=== PATIENT | male | born 1970 | race Caucasian/White ===

== ENCOUNTER 2021-10-30 06:37 | Outpatient (CLI) | payer BC, SELFPAY | END 2021-10-30 06:38 | disposition home or self-care (01) | PROVIDERS: PCP Family Medicine; Visit Provider Family Medicine | DX: M48.062 Spinal stenosis, lumbar region with neurogenic claudication (principal); M54.16 Radiculopathy, lumbar region | CPT/HCPCS: 62323; J0702; Q9966 ==

== ENCOUNTER 2022-11-25 12:52 | Outpatient (CLI) | payer BC, SELFPAY | END 2022-11-25 12:53 | disposition home or self-care (01) | LOC: WOUND 12:53 | PROVIDERS: PCP Family Medicine; Visit Provider Nurse Practitioner Family | DX: T81.32XA Disruption of internal operation (surgical) wound, not elsewhere classified, initial encounter (principal); T81.31XA Disruption of external operation (surgical) wound, not elsewhere classified, initial encounter; Z71.6 Tobacco abuse counseling | CPT/HCPCS: 11042; 87070; 87186; 97597; 99212 ==

== ENCOUNTER 2022-11-27 15:23 | Outpatient (CLI) | payer BC, SELFPAY | END 2022-11-27 15:24 | disposition home or self-care (01) | PROVIDERS: PCP Family Medicine; Visit Provider Surgery | DX: T81.32XA Disruption of internal operation (surgical) wound, not elsewhere classified, initial encounter (principal) | CPT/HCPCS: 99212 ==

== ENCOUNTER 2022-11-29 15:23 | Outpatient (CLI) | payer BC, SELFPAY | END 2022-11-29 15:24 | disposition home or self-care (01) | LOC: WOUND 15:23 | PROVIDERS: PCP Family Medicine; Visit Provider Nurse Practitioner Family | DX: T81.32XA Disruption of internal operation (surgical) wound, not elsewhere classified, initial encounter (principal) | CPT/HCPCS: 99212 ==

== ENCOUNTER 2022-12-02 15:38 | Outpatient (CLI) | payer BC, SELFPAY | END 2022-12-02 15:39 | disposition home or self-care (01) | LOC: WOUND 15:39 | PROVIDERS: PCP Family Medicine; Visit Provider Nurse Practitioner Family | DX: T81.32XA Disruption of internal operation (surgical) wound, not elsewhere classified, initial encounter (principal) | CPT/HCPCS: 99213 ==

== ENCOUNTER 2022-12-05 08:34 | Outpatient (CLI) | payer BC, SELFPAY | END 2022-12-05 08:35 | disposition home or self-care (01) | PROVIDERS: PCP Family Medicine; Visit Provider Nurse Practitioner Family | DX: T81.31XA Disruption of external operation (surgical) wound, not elsewhere classified, initial encounter (principal); Z72.0 Tobacco use | CPT/HCPCS: 97597 ==

== ENCOUNTER 2022-12-09 15:03 | Outpatient (CLI) | payer BC, SELFPAY | END 2022-12-09 15:04 | disposition home or self-care (01) | LOC: WOUND 15:03 | PROVIDERS: PCP Family Medicine; Visit Provider Nurse Practitioner Family | DX: T81.31XA Disruption of external operation (surgical) wound, not elsewhere classified, initial encounter (principal) | CPT/HCPCS: 99213 ==

== ENCOUNTER 2022-12-12 12:49 | Outpatient (CLI) | payer BC, SELFPAY | END 2022-12-12 12:50 | disposition home or self-care (01) | LOC: WOUND 12:49 | PROVIDERS: PCP Family Medicine; Visit Provider Nurse Practitioner Family | DX: T81.31XA Disruption of external operation (surgical) wound, not elsewhere classified, initial encounter (principal) | CPT/HCPCS: 99212 ==

== ENCOUNTER 2022-12-16 15:37 | Outpatient (CLI) | payer BC, SELFPAY | END 2022-12-16 15:38 | disposition home or self-care (01) | LOC: WOUND 15:37 | PROVIDERS: PCP Family Medicine; Visit Provider Nurse Practitioner Family | DX: T81.31XA Disruption of external operation (surgical) wound, not elsewhere classified, initial encounter (principal) | CPT/HCPCS: 99212 ==

== ENCOUNTER 2022-12-19 15:41 | Outpatient (CLI) | payer BC, SELFPAY | END 2022-12-19 15:42 | disposition home or self-care (01) | LOC: WOUND 15:41 | PROVIDERS: PCP Family Medicine; Visit Provider Nurse Practitioner Family | DX: T81.31XA Disruption of external operation (surgical) wound, not elsewhere classified, initial encounter (principal) | CPT/HCPCS: 99213 ==

== ENCOUNTER 2022-12-26 15:07 | Outpatient (CLI) | payer BC, SELFPAY | END 2022-12-26 15:08 | disposition home or self-care (01) | LOC: WOUND 15:07 | PROVIDERS: PCP Family Medicine; Visit Provider Nurse Practitioner Family | DX: T81.31XA Disruption of external operation (surgical) wound, not elsewhere classified, initial encounter (principal) | CPT/HCPCS: 99212 ==

== ENCOUNTER 2023-01-07 15:21 | Outpatient (CLI) | payer BC, SELFPAY | END 2023-01-07 15:22 | disposition home or self-care (01) | LOC: WOUND 15:21 | PROVIDERS: PCP Family Medicine; Visit Provider Family Medicine | DX: T81.31XA Disruption of external operation (surgical) wound, not elsewhere classified, initial encounter (principal) | CPT/HCPCS: 11042 ==

== ENCOUNTER 2023-01-10 14:27 | Outpatient (CLI) | payer BC, SELFPAY | END 2023-01-10 14:28 | disposition home or self-care (01) | LOC: WOUND 14:27 | PROVIDERS: PCP Family Medicine; Visit Provider Family Medicine | DX: T81.31XA Disruption of external operation (surgical) wound, not elsewhere classified, initial encounter (principal) | CPT/HCPCS: 99212 ==

== ENCOUNTER 2023-01-14 15:24 | Outpatient (CLI) | payer BC, SELFPAY | END 2023-01-14 15:25 | disposition home or self-care (01) | LOC: WOUND 15:24 | PROVIDERS: PCP Family Medicine; Visit Provider Nurse Practitioner Family | DX: T81.31XA Disruption of external operation (surgical) wound, not elsewhere classified, initial encounter (principal) | CPT/HCPCS: 97597 ==

== ENCOUNTER 2023-01-21 14:44 | Outpatient (CLI) | payer BC, SELFPAY | END 2023-01-21 14:45 | disposition home or self-care (01) | LOC: WOUND 14:44 | PROVIDERS: PCP Family Medicine; Visit Provider Nurse Practitioner Family | DX: T81.31XA Disruption of external operation (surgical) wound, not elsewhere classified, initial encounter (principal); T81.32XA Disruption of internal operation (surgical) wound, not elsewhere classified, initial encounter | CPT/HCPCS: 11042; 87070; 87186; 97602 ==

== ENCOUNTER 2023-01-24 15:01 | Outpatient (CLI) | payer BC, SELFPAY | END 2023-01-24 15:02 | disposition home or self-care (01) | LOC: WOUND 15:01 | PROVIDERS: PCP Family Medicine; Visit Provider Nurse Practitioner Family | DX: T81.31XA Disruption of external operation (surgical) wound, not elsewhere classified, initial encounter (principal) | CPT/HCPCS: 99212 ==

== ENCOUNTER 2023-01-27 15:03 | Outpatient (CLI) | payer BC, SELFPAY | END 2023-01-27 15:04 | disposition home or self-care (01) | LOC: WOUND 15:04 | PROVIDERS: PCP Family Medicine; Visit Provider Nurse Practitioner Family | DX: T81.31XA Disruption of external operation (surgical) wound, not elsewhere classified, initial encounter (principal) | CPT/HCPCS: 97597; 97602 ==

== ENCOUNTER 2023-01-29 15:44 | Outpatient (CLI) | payer BC, SELFPAY | END 2023-01-29 15:45 | disposition home or self-care (01) | LOC: WOUND 15:44 | PROVIDERS: PCP Family Medicine; Visit Provider Nurse Practitioner Family | DX: T81.31XA Disruption of external operation (surgical) wound, not elsewhere classified, initial encounter (principal) | CPT/HCPCS: 99212 ==

== ENCOUNTER 2023-01-31 15:21 | Outpatient (CLI) | payer BC, SELFPAY | END 2023-01-31 15:22 | disposition home or self-care (01) | LOC: WOUND 15:21 | PROVIDERS: PCP Family Medicine; Visit Provider Nurse Practitioner Family | DX: T81.31XA Disruption of external operation (surgical) wound, not elsewhere classified, initial encounter (principal) | CPT/HCPCS: 99212 ==

== ENCOUNTER 2023-02-03 15:14 | Outpatient (CLI) | payer BC, SELFPAY | END 2023-02-03 15:15 | disposition home or self-care (01) | LOC: WOUND 15:14 | PROVIDERS: PCP Family Medicine; Visit Provider Nurse Practitioner Family | DX: T81.31XA Disruption of external operation (surgical) wound, not elsewhere classified, initial encounter (principal) | CPT/HCPCS: 97597 ==

== ENCOUNTER 2023-02-05 15:18 | Outpatient (CLI) | payer BC, SELFPAY | END 2023-02-05 15:19 | disposition home or self-care (01) | LOC: WOUND 15:18 | PROVIDERS: PCP Family Medicine; Visit Provider Nurse Practitioner Family | DX: T81.31XA Disruption of external operation (surgical) wound, not elsewhere classified, initial encounter (principal) | CPT/HCPCS: 99212 ==

== ENCOUNTER 2023-02-07 15:38 | Outpatient (CLI) | payer BC, SELFPAY | END 2023-02-07 15:39 | disposition home or self-care (01) | LOC: WOUND 15:38 | PROVIDERS: PCP Family Medicine; Visit Provider Nurse Practitioner Family | DX: T81.31XA Disruption of external operation (surgical) wound, not elsewhere classified, initial encounter (principal) | CPT/HCPCS: 99212 ==

== ENCOUNTER 2023-02-10 13:29 | Outpatient (CLI) | payer BC, SELFPAY ==
--- NOTE | 2023-02-10 14:30 | CRLHL7_ITS ---
For Patients: As a result of the Century Cures Act, medical imaging exams and procedure reports are released immediately into your electronic medical record. You may view this report before your referring provider. If you have questions, please contact your health care provider. INDICATION: Nonhealing wound within the surgical site of the lumbar spine. TECHNIQUE: MRI of the lumbar spine without and with IV contrast is performed in the usual fashion. 13 cc of dotarem gadolinium was administered intravenously. No comparisons. FINDINGS: Degenerative marrow signal changes present adjacent to the L5-S1 and L2-3 endplates. Trivial degenerate anterolisthesis of L1 on 2. Remainder of the lumbar spine demonstrates normal overall stature, alignment and intrinsic marrow signal. Conus is within normal limits. There is extensive enhancement in the posterior paraspinous musculature extending from L1-2 through L4. There does appear to be evidence of laminectomies at these levels. No evidence of suspicious epidural fluid collections. There is a 2 centimeter fluid collection within the posterior paraspinous musculature that appears to have a sinus tract extending to the subcutaneous soft tissues at the L3-4 level. T12-L1: Mild broad-based posterior disc bulge results in mild to moderate left and no right foraminal narrowing. Mild central canal narrowing. L2-3: Circumferential disk bulge results in no central canal narrowing. Mild to moderate bilateral foraminal narrowing. L3-4: Mild broad-based posterior disc bulge results in no central canal narrowing. Mild bilateral foraminal narrowing. L4-5: Mild broad-based posterior disc bulge and facet arthropathy results in moderate bilateral foraminal narrowing. Central canal is patent. L5-S1: Circumferential disk bulge, endplate osteophyte results in no significant central canal narrowing. Moderate bilateral foraminal narrowing. IMPRESSION: 1. Extensive postoperative changes of the lumbar spine with evidence of enhancement of the posterior paraspinous musculature and within the surgical defects of the lamina from L1-2 through L4. 2. Small fluid collection within the posterior paraspinous musculature with a sinus tract extending into the subcutaneous soft tissues that may represent postoperative change. 3. No evidence of suspicious epidural abscess formation seen at this time. 4. Multilevel degenerative changes scattered throughout the lumbar spine as outlined above. Dictated by Jian Ontiveros MD @ 02/10/2023 4:45:57 PM Dictated by: Jian Ontiveros MD @ 02/10/2023 16:46:03 (Electronically Signed)
--- NOTE | 2023-02-10 15:30 | CRLHL7_ITS ---
For Patients: As a result of the Century Cures Act, medical imaging exams and procedure reports are released immediately into your electronic medical record. You may view this report before your referring provider. If you have questions, please contact your health care provider. INDICATION: Nonhealing wound at surgical site TECHNIQUE: Noncontrast sagittal T1, T2, STIR and axial GRE sequences are provided. Supplemental postcontrast sagittal T1 weighted sequences are provided. No comparisons. 13 cc of dotarem was administered intravenously. FINDINGS: The overall stature, alignment and intrinsic marrow signal of the thoracic spine is within normal limits. Thoracic cord is normal. No suspicious regions of abnormal contrast enhancement. There are multiple disc bulges and endplate osteophytes with facet arthropathy scattered throughout the visualized thoracic spine. This is most severe at the T10-11 level where moderate to severe bilateral foraminal narrowing is present with no central canal narrowing. IMPRESSION: 1. Multilevel spondylotic degenerative changes scattered throughout the cervical spine most severe at T10-11 were moderate to severe bilateral foraminal narrowing is present. 2. No suspicious enhancing lesions within the visualized thoracic spine. Dictated by Jian Ontiveros MD @ 02/10/2023 4:38:48 PM (Electronically Signed)
== END 2023-02-10 13:30 | disposition home or self-care (01) ==
PROVIDERS: PCP Student in an Organized Health Care Education/Training Program; Visit Provider Nurse Practitioner Family
DX: T81.31XA Disruption of external operation (surgical) wound, not elsewhere classified, initial encounter (principal)
CPT/HCPCS: 72157; 72158; 97597; A9575

== ENCOUNTER 2023-02-14 13:21 | Outpatient (CLI) | payer BC, SELFPAY | END 2023-02-14 13:22 | disposition home or self-care (01) | LOC: WOUND 13:21 | PROVIDERS: PCP Student in an Organized Health Care Education/Training Program; Visit Provider Nurse Practitioner Family | DX: T81.31XA Disruption of external operation (surgical) wound, not elsewhere classified, initial encounter (principal) | CPT/HCPCS: 99212 ==

== ENCOUNTER 2023-02-18 14:45 | Outpatient (CLI) | payer BC, SELFPAY | END 2023-02-18 14:46 | disposition home or self-care (01) | LOC: WOUND 14:45 | PROVIDERS: PCP Student in an Organized Health Care Education/Training Program; Visit Provider Family Medicine | DX: T81.31XA Disruption of external operation (surgical) wound, not elsewhere classified, initial encounter (principal) | CPT/HCPCS: 11042 ==

== ENCOUNTER 2023-02-21 15:49 | Outpatient (CLI) | payer BC, SELFPAY | END 2023-02-21 15:50 | disposition home or self-care (01) | LOC: WOUND 15:49 | PROVIDERS: PCP Student in an Organized Health Care Education/Training Program; Visit Provider Family Medicine | DX: T81.31XA Disruption of external operation (surgical) wound, not elsewhere classified, initial encounter (principal) | CPT/HCPCS: G0463 ==

== ENCOUNTER 2023-02-25 15:45 | Outpatient (CLI) | payer BC, SELFPAY | END 2023-02-25 15:46 | disposition home or self-care (01) | LOC: WOUND 15:45 | PROVIDERS: PCP Student in an Organized Health Care Education/Training Program; Visit Provider Family Medicine | DX: T81.31XA Disruption of external operation (surgical) wound, not elsewhere classified, initial encounter (principal) | CPT/HCPCS: G0463 ==

== ENCOUNTER 2023-02-28 15:36 | Outpatient (CLI) | payer BC, SELFPAY | END 2023-02-28 15:37 | disposition home or self-care (01) | LOC: WOUND 15:36 | PROVIDERS: PCP Student in an Organized Health Care Education/Training Program; Visit Provider Family Medicine | DX: T81.31XA Disruption of external operation (surgical) wound, not elsewhere classified, initial encounter (principal) | CPT/HCPCS: G0463 ==

== ENCOUNTER 2023-03-03 15:37 | Outpatient (CLI) | payer BC, SELFPAY | END 2023-03-03 15:38 | disposition home or self-care (01) | LOC: WOUND 15:37 | PROVIDERS: PCP Student in an Organized Health Care Education/Training Program; Visit Provider Nurse Practitioner Family | DX: T81.31XA Disruption of external operation (surgical) wound, not elsewhere classified, initial encounter (principal) | CPT/HCPCS: 97597 ==

== ENCOUNTER 2023-03-07 13:53 | Outpatient (CLI) | payer BC, SELFPAY | END 2023-03-07 13:54 | disposition home or self-care (01) | LOC: WOUND 13:53 | PROVIDERS: PCP Student in an Organized Health Care Education/Training Program; Visit Provider Nurse Practitioner Family | DX: T81.31XA Disruption of external operation (surgical) wound, not elsewhere classified, initial encounter (principal) | CPT/HCPCS: G0463 ==

== ENCOUNTER 2023-03-10 14:54 | Outpatient (CLI) | payer BC, SELFPAY | END 2023-03-10 14:55 | disposition home or self-care (01) | LOC: WOUND 14:55 | PROVIDERS: PCP Student in an Organized Health Care Education/Training Program; Visit Provider Nurse Practitioner Family | DX: T81.31XA Disruption of external operation (surgical) wound, not elsewhere classified, initial encounter (principal) | CPT/HCPCS: 97597 ==

== ENCOUNTER 2023-03-13 13:52 | Outpatient (CLI) | payer BC, SELFPAY | END 2023-03-13 13:53 | disposition home or self-care (01) | LOC: WOUND 13:52 | PROVIDERS: PCP Student in an Organized Health Care Education/Training Program; Visit Provider Nurse Practitioner Family | DX: T81.31XA Disruption of external operation (surgical) wound, not elsewhere classified, initial encounter (principal) | CPT/HCPCS: G0463 ==

== ENCOUNTER 2023-03-17 15:40 | Outpatient (CLI) | payer BC, SELFPAY | END 2023-03-17 15:41 | disposition home or self-care (01) | LOC: WOUND 15:40 | PROVIDERS: PCP Student in an Organized Health Care Education/Training Program; Visit Provider Nurse Practitioner Family | DX: T81.31XA Disruption of external operation (surgical) wound, not elsewhere classified, initial encounter (principal) | CPT/HCPCS: 97597 ==

== ENCOUNTER 2023-03-20 13:42 | Outpatient (CLI) | payer BC, SELFPAY | END 2023-03-20 13:43 | disposition home or self-care (01) | LOC: WOUND 13:42 | PROVIDERS: PCP Student in an Organized Health Care Education/Training Program; Visit Provider Nurse Practitioner Family | DX: T81.31XA Disruption of external operation (surgical) wound, not elsewhere classified, initial encounter (principal) | CPT/HCPCS: G0463 ==

== ENCOUNTER 2023-03-24 14:21 | Outpatient (CLI) | payer BC, SELFPAY | END 2023-03-24 14:22 | disposition home or self-care (01) | LOC: WOUND 14:21 | PROVIDERS: PCP Student in an Organized Health Care Education/Training Program; Visit Provider Nurse Practitioner Family | DX: T81.31XA Disruption of external operation (surgical) wound, not elsewhere classified, initial encounter (principal) | CPT/HCPCS: 97602; G0463 ==

== ENCOUNTER 2023-03-27 13:43 | Outpatient (CLI) | payer BC, SELFPAY | END 2023-03-27 13:44 | disposition home or self-care (01) | LOC: WOUND 13:43 | PROVIDERS: PCP Student in an Organized Health Care Education/Training Program; Visit Provider Nurse Practitioner Family | DX: T81.31XA Disruption of external operation (surgical) wound, not elsewhere classified, initial encounter (principal) | CPT/HCPCS: G0463 ==

== ENCOUNTER 2023-03-31 13:54 | Outpatient (CLI) | payer BC, SELFPAY | END 2023-03-31 13:55 | disposition home or self-care (01) | LOC: WOUND 13:54 | PROVIDERS: PCP Student in an Organized Health Care Education/Training Program; Visit Provider Nurse Practitioner Family | DX: T81.31XA Disruption of external operation (surgical) wound, not elsewhere classified, initial encounter (principal) | CPT/HCPCS: 97597 ==

== ENCOUNTER 2023-04-02 15:45 | Outpatient (CLI) | payer BC, SELFPAY | END 2023-04-02 15:46 | disposition home or self-care (01) | LOC: WOUND 15:45 | PROVIDERS: PCP Student in an Organized Health Care Education/Training Program; Visit Provider Surgery | DX: T81.31XA Disruption of external operation (surgical) wound, not elsewhere classified, initial encounter (principal); A49.02 Methicillin resistant Staphylococcus aureus infection, unspecified site | CPT/HCPCS: 10180; 87070; 87186; 97597 ==

== ENCOUNTER 2023-04-07 14:16 | Outpatient (CLI) | payer BC, SELFPAY | END 2023-04-07 14:17 | disposition home or self-care (01) | LOC: WOUND 14:16 | PROVIDERS: PCP Student in an Organized Health Care Education/Training Program; Visit Provider Physician Assistant | DX: T81.31XA Disruption of external operation (surgical) wound, not elsewhere classified, initial encounter (principal) | CPT/HCPCS: G0463 ==

== ENCOUNTER 2023-09-04 16:13 | Outpatient (RCR) | payer BC, SELFPAY | END 2023-11-11 15:23 | disposition home or self-care (01) | PROVIDERS: PCP Student in an Organized Health Care Education/Training Program; Visit Provider Family Medicine | DX: M54.16 Radiculopathy, lumbar region (principal); M54.12 Radiculopathy, cervical region; Z51.89 Encounter for other specified aftercare; M47.812 Spondylosis without myelopathy or radiculopathy, cervical region; G95.0 Syringomyelia and syringobulbia; M48.062 Spinal stenosis, lumbar region with neurogenic claudication | CPT/HCPCS: 97110; 97162 ==

== ENCOUNTER 2023-12-02 08:34 | Outpatient (CLI) | payer BC, SELFPAY | END 2023-12-02 08:35 | disposition home or self-care (01) | LOC: INJ CL 08:35 | PROVIDERS: PCP Student in an Organized Health Care Education/Training Program; Visit Provider Family Medicine | DX: M54.16 Radiculopathy, lumbar region (principal); M51.369 Other intervertebral disc degeneration, lumbar region without mention of lumbar back pain or lower extremity pain | CPT/HCPCS: 64483; J1100; Q9966 ==

== ENCOUNTER 2024-05-04 07:36 | Outpatient (CLI) | payer BC, SELFPAY | END 2024-05-04 07:37 | disposition home or self-care (01) | LOC: INJ CL 07:37 | PROVIDERS: PCP Student in an Organized Health Care Education/Training Program; Visit Provider Family Medicine | DX: M54.16 Radiculopathy, lumbar region (principal); M51.362 Other intervertebral disc degeneration, lumbar region with discogenic back pain and lower extremity pain | CPT/HCPCS: 64483; J1100; Q9966 ==